=== PATIENT | female | born 1965 | race Caucasian/White ===

== ENCOUNTER 2019-05-28 10:33 | Emergency (ER) | payer BC ==
--- OUTSIDE RECORDS SUMMARY | 2019-05-28 10:42 | XMS REPORT | Continuity of Care Document ---
:1965 External Reference #:[id number] Author Name Azalia Samuels, WENDY Address [address] [place] [address] Care Team Providers Name Role Phone Conor Yusuf MD - Family Care Team Information Dieing Out Machine Operator Medicine [facility] - Diagnostic Care Team Information Dieing Out Machine Operator Radiology Problems Active Problems Provider Date Benign essential hypertension Conor Yusuf M.D. Onset: 12/29/2012 Backache Conor Yusuf M.D. Onset: 12/29/2012 Social History Type Date Description Comments Sex Unknown Tobacco Use Start: Unknown Nonsmoker Smoking Status Reviewed: 04/23/19 Nonsmoker Allergies, Adverse Reactions, Alerts Active Allergies Reaction Severity Comments Date Percocet nausea/dizziness 12/29/2012 Medications Active Medications SIG Qnty Indications Ordering Provider Date Celexa take 1 tablets 30tabs N95.1 Azalia Lilly 04/23/2019 40mg Tablets by mouth every Samuels, MERCHANDISE STOCKER day Gabapentin Take One Capsule 30caps N95.1 Moo Townsend, 10/21/2018 300mg By Mouth Every M.D. Capsules Night Before Bed Ondansetron HCL 1 by mouth every 60tabs R11.2 Lanette Arita, 2017 4mg 8 hours as [employer] Tablets needed nausea Systane 2 drops each eye 10ml H01.119 Moo Townsend, 03/27/2017 0.4-0.3% four times a day M.D. Solution as needed dryness Naproxen 1 by mouth twice 60tabs M54.5 Moo Townsend, 05/14/2016 500mg a day with food M.D. Tablets prn Tramadol HCL take two tablets 100tabs Conor Yusuf, 12/29/2012 50mg by mouth every 8 M.D. Tablets hours as needed for pain maximum daily dose = 6 Fluticasone 1 spray per Unknown Propionate Nasal nostril daily [place] 24- Hour 50mcg/Act Suspension History Medications Celexa 1 by mouth every 30tabs N95.1 Azalia Lilly 03/12/2019 - 20mg day WENDY Samuels 04/23/2019 Tablets Physical Therapy evaluate and 1units M70.52 Moo Townsend, 02/03/2019 - treat left knee M.DLoli 03/12/2019 swelling/ pain Immunizations CPT Code Status Date Vaccine Lot # [id number] Given 05/14/2016 Tdap Tetanus, W Pertussis [id number] Given Unknown Influenza Vac, Quadrivalent, Slit Virus, Im Vital Signs Date Vital Result Comment 04/23/2019 1:39pm BP Systolic 138 mmHg BP Diastolic 90 mmHg Heart Rate 80 /min Body Temperature 97.2 F Height 66 inches 5'6" Weight 163.00 lb BMI (Body Mass Index) 26.3 kg/m2 03/12/2019 4:06pm BP Systolic 116 mmHg BP Diastolic 80 mmHg Heart Rate 72 /min Body Temperature 98.2 F Respiratory Rate 18 /min Weight 162.00 lb Results Description No Information Available Procedures Date Code Description Status 11/03/2018 73256 Vision Test- screening test of visual acuity, Completed quantitative, bila 11/03/2018 96033 Electrocardiogram Complete Completed Medical Devices Description No Information Available Encounters Type Date Location Provider Dx Diagnosis Office Visit 03/12/2019 [facility] Office Azalia Lilly N95.1 Menopausal and 4:00p WENDY Samuels female climacteric states Office Visit 02/03/2019 [facility] Office Cathy Frankel, M70.52 Other bursitis of 9:00a PA knee, left knee Office Visit 11/03/2018 [facility] Office Conor Laws Z00.00 Encntr for general 8:10a Kortney Yusuf adult medical exam w/o abnormal findings J30.9 Allergic rhinitis, unspecified Assessments Date Code Description Provider 04/23/2019 N95.1 Menopausal and female climacteric states Azalia Samuels NP 04/23/2019 Z12.31 Encounter for screening mammogram for Azalia Samuels NP malignant neoplasm of breast 03/12/2019 N95.1 Menopausal and female climacteric states Azalia Samuels NP 02/03/2019 M70.52 Other bursitis of knee, left knee KENJI Giron 11/03/2018 Z00.00 Encounter for general adult medical Conor Yusuf M.D. examination without abno 11/03/2018 J30.9 Allergic rhinitis, unspecified Conor Yusuf M.D. Plan of Treatment 04/23/2019 - Azalia Samuels, WENDYN95.1 Menopausal and female climacteric statesNew Medication:Celexa 40 mg - take 1 tablets by mouth every dayComments: increase celexa to 40mg and continue the gabapentin since it helped last time if still having sx, please contact me via portal and we will set up referral to [facility] WwswduM05.31 Encounter for screening mammogram for malignant neoplasm of breastNew Xrays:Mammography Screening, Bilateral; 2-View Each Breast , Ordered: 04/23/19Comments:A mammogram has been ordered.AllComments:Medication Management Patient Understands medications he 's taking? Yes No Are there Barriers to Adherence? Yes No Has the patient been asked about herbal supplements and therapies, andOTC meds? Yes No Care Plan1. Patient has been queried about patient's goals/preferences and functional/ lifestyle goals at relevant visits. If relevant, describe: na2. Treatment goals as explained to the patient: above3. Are there barriers to meeting treatment goals? Yes No If Yes, please describe:4. Self-Management goals as described to the patient: Yes NoAs always, we strongly encourage a healthy diet and making physical activity a part of your every day life. If you have questions about how or where to start, please contact the office.Follow up:Please contact front office staff to set up the online patient portal Functional Status Description No Information Available Mental Status Description No Information Available Referrals Refer to Reason for Referral Status Appt Date [facility] colonoscopy jw Closed [address] [place] [phone]
[2019-05-28 10:45] VITALS: BP 170/102
--- NOTE | 2019-05-28 11:01 | UC ---
FLU HPI - HPI Summary HPI Summary: Patient is a 64yo female presenting with fever, chills, and body aches x4 days. Patient states she "threw up twice last night and twice this morning." Notes diarrhea as well that has been relieved by imodium. Denies abdominal pain. Denies urinary symptoms. Notes congestion. Denies sore throat and cough. Eating bland diet and drinking fluids. - History of Current Complaint Chief Complaint: UCGeneralIllness Stated Complaint: BODYACHES DIARRHEA VOMITING FEVER Hx Obtained From: Patient Pain Intensity: 6 Pain Scale Used: 0-10 Numeric - Allergy/Home Medications Allergies/Adverse Reactions: Allergies Allergy/AdvReac Type Severity Reaction Status Date / Time oxycodone Allergy Nausea Verified 05/28/19 10:45 Home Medications: Home Medications Citalopram Hydrobromide [Citalopram HBr] 1 tab PO DAILY 05/28/19 [History Confirmed 05/28/19] Gabapentin 1 tab PO DAILY 05/28/19 [History Confirmed 05/28/19] Tramadol HCl 150 mg PO DAILY 05/28/19 [History Confirmed 05/28/19] PMH/Surg Hx/FS Hx/Imm Hx - Surgical History Surgical History: Yes Surgery Procedure, Year, and Place: csec,hyster - Family History Known Family History: Negative: Blood Disorder - Social History Alcohol Use: Weekly Substance Use Type: None Smoking Status (MU): Light Every Day Tobacco Smoker Have You Smoked in the Last Year: No Review of Systems All Other Systems Reviewed And Are Negative: Yes Constitutional: Positive: Fever, Chills, Fatigue ENT: Positive: Sinus Congestion Respiratory: Positive: Negative Cardiovascular: Positive: Negative Gastrointestinal: Positive: Vomiting, Diarrhea, Nausea. Negative: Abdominal Pain Genitourinary: Positive: Negative Musculoskeletal: Positive: Myalgia Neurological/Mental Status: Positive: Negative Physical Exam - Summary Physical Exam Summary: Vital Signs Reviewed: Yes A+Ox3, no distress Eyes: Conjunctiva Clear ENT: Hearing grossly normal, TM x 2 clear, moist, uvula midline, no exudate, no erythema Neck: Positive: Supple Respiratory: Positive: No respiratory distress, No accessory muscle use + CTA throughout no w/r Cardiovascular: RRR nl s1, s2 no m/r Abd: soft + BS nt/nd no guarding Musculoskeletal Exam: ESTEBAN x 4 without difficulty Neurological: Positive: Alert Psychological: Positive: age appropriate behavior Skin: Positive: no rash, no ecchymosis Vital Signs: Initial Vital Signs Temp 97.8 F 05/28/19 10:42 Pulse 80 05/28/19 10:42 Resp 19 05/28/19 10:42 BP 170/102 05/28/19 10:42 Pulse Ox 100 05/28/19 10:42 Lab Results 05/28/19 Range/Units 11:11 Influenza A (Rapid) Negative (Negative) Influenza B (Rapid) Negative (Negative) Flu Course/Dx - Course Course Of Treatment: Negative rapid flu. Educated on viral illness and instructed to continue symptomatic treatment. Instructed to go to ED with any new or worsening symptoms. Patient voiced understanding and agreed with the treatment plan. - Differential Dx/Diagnosis Differential Diagnosis/HQI/PQRI: Influenza Provider Diagnosis: Nausea and vomiting, Acute diarrhea, Myalgia Discharge ED - Sign-Out/Discharge Documenting (check all that apply): Patient Departure All imaging exams completed and their final reports reviewed: No Studies - Discharge Plan Condition: Stable Disposition: HOME Patient Education Materials: Viral Syndrome (ED) Referrals: Conor Yusuf MD [Primary Care Provider] - If Needed Additional Instructions: As discussed, your fu test was negative today. Your symptoms are likely caused by a virus and should resolve without treatment. Get plenty of rest and fluids. Eat a bland diet, such as bread, bananas, and rice as tolerated while symptoms are present. Go to the emergency room if you develop new or worsening symtpoms. - Billing Disposition and Condition Condition: STABLE Disposition: Home - Attestation Statements Provider Attestation: This patient was not seen by me. I was available for consult. Chart reviewed. MANPREET
[2019-05-28] MEDS ORDERED: Ondansetron ODT TAB* 4 MG SL ONE (11:22)
[2019-05-28 11:23] LABS: Influenza A Molecular Negative (Negative); Influenza B Molecular Negative (Negative)
== END 2019-05-28 11:38 | disposition home or self-care (01) ==
LOC: UCEAST 10:33
DX: R11.2 Nausea with vomiting, unspecified (principal); R19.7 Diarrhea, unspecified; M79.10 Myalgia, unspecified site; R09.81 Nasal congestion; R53.83 Other fatigue; F17.290 Nicotine dependence, other tobacco product, uncomplicated; Z88.5 Allergy status to narcotic agent
CPT/HCPCS: 99212; A9270-GY; G0463